=== PATIENT | male | born 1950 | race Caucasian/White ===

== ENCOUNTER 2024-05-16 08:46 | Inpatient (IN) | payer OTHER ==
[~2024-05-16] VITALS: Ht 175.3 cm; Wt 51.7 kg
[2024-05-16] VITALS (12 sets, daily range): BP systolic 98–123; PULSE 78–102; RESP 18–36; TEMP 97.8–100.5; O2SAT 93–100
[2024-05-16 09:20] LABS: BASOPHILS % (AUTO) 0.1 % (0.0-2.0); HEMATOCRIT 26.3 % (36-54); HEMOGLOBIN 8.4 g/dL (14.0-18.0); LYMPHOCYTES # (AUTO) 0.6 K/uL (1.0-5.5); LYMPHOCYTES % (AUTO) 2.3 % (20.5-51.5); MEAN CORPUSCULAR HEMOGLOBIN 29 pg (27-31); MEAN CORPUSCULAR HGB CONC 32 % (32-36); MEAN CORPUSCULAR VOLUME 92 fL (79.0-98.0); MONOCYTES # (AUTO) 0.6 K/uL (0.0-1.0); MONOCYTES % (AUTO) 2.4 % (1.7-9.3); NEUTROPHILS % (AUTO) 95.2 % (40.0-70.0); PLATELET COUNT (AUTO) 427 K/uL (130-430); RED BLOOD CELL COUNT(AUTO) 2.87 MIL/uL (4.2-6.2); RED CELL DISTRIBUTION WIDTH 15.4 % (9.0-15.0)
[2024-05-16 09:21] LABS: ABG O2 SAT% ESTIMATE 97.5 % (94.0-100.0); BLOOD GAS PCO2 28.6 mmHg (32.0-45.0); BLOOD GAS PH 7.416 (7.350-7.450); BLOOD GAS PO2 95.1 mmHg (75.0-100.0)
[2024-05-16] MEDS ORDERED: VANCOMYCIN HCL 1000 MG/VIAL IV ONE (09:27)
[2024-05-16] MEDS ORDERED: PIPERACILLIN/TAZOBACTAM 3.375 GM/VIAL (ZOSYN) IV ONE (09:27)
[2024-05-16 09:28] LABS: BLOOD GAS BASE EXCESS -5.5 mmol/L (-3.0-3.0)
[2024-05-16] MEDS: PIPERACILLIN/TAZO 3.375 GM in NS 50 ML IV ONE (09:33)
[2024-05-16] MEDS: NS 1000 ML IV.SOLN IV ONE (09:34)
[2024-05-16] MEDS: ACETAMINOPHEN 650 MG SUPP.RECT RC ONE (09:34)
[2024-05-16] MEDS: VANCOMYCIN HCL 1,000 MG in NS 250 ML IV ONE (09:35)
[2024-05-16 09:52] LABS: INR 1.1 (0.80-1.20); PROTHROMBIN TIME 11.7 SECS (9.5-12.5)
[2024-05-16 10:07] LABS: ALANINE AMINOTRANSFERASE 11 U/L (12-78); ALBUMIN 0.9 g/dL (3.4-4.8); ANION GAP 18 (5-15); ASPARTATE AMINOTRANSFERASE 23 U/L (10-37); BILIRUBIN,DIRECT 0.2 mg/dL (0.0-0.3); CALCIUM 8.8 mg/dL (8.4-11.0); CARBON DIOXIDE 18 mmol/L (23-29); CREATININE 2.35 mg/dL (0.55-1.30); GLUCOSE 254 mg/dL (74-106); TOTAL BILIRUBIN 0.5 mg/dL (0.0-1.0); UREA NITROGEN, BLOOD 44 mg/dL (8-21)
[2024-05-16 10:17] LABS: CHLORIDE 125 mmol/L (98-107); POTASSIUM 2.7 mmol/L (3.5-5.1); SODIUM SERUM 161 mmol/L (136-145)
[2024-05-16 10:20] LABS: NEUTROPHILS # (AUTO) 25.7 K/uL (1.8-7.7)
[2024-05-16 10:50] LABS: COVID19 ANTIGEN SOFIA FIA NEGATIVE (NEGATIVE)
[2024-05-16] MEDS ORDERED: MULT-1117 PO (10:53)
[2024-05-16] MEDS ORDERED: LIP80 PO (10:53)
[2024-05-16] MEDS ORDERED: SITA100T11 PO (10:53)
[2024-05-16] MEDS ORDERED: NOR10 PO (10:53)
[2024-05-16] MEDS ORDERED: SENN8.6T19 PO (10:53)
[2024-05-16] MEDS ORDERED: LOSA-415 PO (10:53)
[2024-05-16] MEDS ORDERED: FERR-69 PO (10:53)
[2024-05-16] MEDS ORDERED: INSU200I SQ (10:53)
[2024-05-16] MEDS ORDERED: TICA90TA PO (10:53)
[2024-05-16] MEDS ORDERED: TAMS-11 PO (10:53)
[2024-05-16] MEDS ORDERED: GLIP2.5T3 PO (10:53)
[2024-05-16] MEDS ORDERED: MAGN400T10 PO (10:53)
[2024-05-16] MEDS ORDERED: ASPI-1155 PO (10:53)
[2024-05-16] MEDS ORDERED: ACET325T PO (10:53)
[2024-05-16] MEDS ORDERED: DOCU-144 PO (10:53)
[2024-05-16] MEDS ORDERED: LACT1TAB26 PO (10:53)
[2024-05-16] MEDS ORDERED: MOM PO (10:53)
[2024-05-16] MEDS ORDERED: FINA-37 PO (10:53)
[2024-05-16] MEDS ORDERED: INSU100V9 SQ (10:53)
[2024-05-16 10:54] LABS: INFLUENZA TYPE A Negative (NEGATIVE); INFLUENZA TYPE B NEGATIVE (NEGATIVE)
[2024-05-16] MEDS ORDERED: HYDROcodone/ACETAMIN 10-325 MG TAB PO PRN (11:30)
[2024-05-16] MEDS ORDERED: LORazepam 2 MG/ML VIAL IVP PRN (11:30)
[2024-05-16] MEDS ORDERED: amLODIPine BESYLATE 10 MG TABLET PO SCH (11:30)
[2024-05-16] MEDS ORDERED: HYDROcodone/ACETAMIN 5-325 MG TAB (NORCO/ VICODIN) PO PRN (11:30)
[2024-05-16] MEDS ORDERED: ACETAMINOPHEN 325 MG TABLET PO PRN ×2 (11:30→12:15)
[2024-05-16] MEDS ORDERED: ONDANSETRON HCL 4 MG/2 ML VIAL IVP PRN (11:30)
[2024-05-16] MEDS ORDERED: NALOXONE HCL 0.4 MG/ML AMP (NARCAN) IVP PRN ×2 (11:30)
[2024-05-16] MEDS: POTASSIUM CHLORIDE 40 MEQ in NS 250 ML IV ONE (12:02)
[2024-05-16] MEDS: ALBUMIN HUMAN 25% 50 ML IV SCH (12:03)
[2024-05-16] MEDS: NACL 0.9% 1,000 ML IV SCH (12:03)
[2024-05-16] MEDS: TAMSULOSIN HCL 0.4 MG CAP PO ONE (12:15)
[2024-05-16] MEDS: ASPIRIN 81 MG TAB.CHEW PO ONE (12:15)
[2024-05-16] MEDS: glipiZIDE XL 2.5 MG/TAB (GLUCOTROL XL) PO ONE (12:15)
[2024-05-16] MEDS: amLODIPine BESYLATE 10 MG TABLET PO ONE (12:15)
[2024-05-16] MEDS: MULTIVITAMINS TAB 1 TABLET PO ONE (12:15)
[2024-05-16] MEDS: FINASTERIDE 5 MG TABLET (PROSCAR) PO ONE (12:15)
[2024-05-16] MEDS: SENNOSIDES 8.6 MG TABLET PO ONE (12:15)
[2024-05-16] MEDS: FERROUS SULFATE 325 MG TABLET.DR PO ONE (12:15)
[2024-05-16 14:55] LABS: ALANINE AMINOTRANSFERASE 7 U/L (12-78); ANION GAP 17 (5-15); ASPARTATE AMINOTRANSFERASE 23 U/L (10-37); CALCIUM 8.3 mg/dL (8.4-11.0); CARBON DIOXIDE 16 mmol/L (23-29); CREATININE 2.24 mg/dL (0.55-1.30); GLUCOSE 273 mg/dL (74-106); TOTAL BILIRUBIN 0.6 mg/dL (0.0-1.0); TOTAL PROTEIN, SERUM 6.3 g/dL (6.4-8.3); UREA NITROGEN, BLOOD 45 mg/dL (8-21)
[2024-05-16 15:12] LABS: SODIUM SERUM 163 mmol/L (136-145)
[2024-05-16 15:13] LABS: CHLORIDE 130 mmol/L (98-107)
[2024-05-16] MEDS: IPRATROPIUM BROM 0.5 MG/2.5 ML VIAL.NEB (ATROVENT) INH SCH (15:49)
[2024-05-16] MEDS: ALBUTEROL SULFATE 0.083% 2.5 MG/3 ML VIAL.NEB INH SCH (15:49)
[2024-05-16] MEDS: PIPERACILLIN/TAZO 3.375/DEX-IS 50 ML IV SCH (19:23)
[2024-05-16] MEDS: INSULIN REGULAR, HUMAN 100 UNITS/ML, 3 ML VIAL (humuLIN R) SUBCUT PRN (19:58)
[2024-05-16] MEDS: MILK OF MAGNESIA 30 ML UDC PO SCH (21:00)
[2024-05-16] MEDS: LACTOBACILLUS RHAMNOSUS GG 1 CAP CAPSULE PO SCH (21:00)
[2024-05-16] MEDS: ATORVASTATIN 20 MG TABLET PO SCH (21:00)
[2024-05-16] MEDS: LOSARTAN POTASSIUM 50 MG TABLET (COZAAR) PO SCH (21:00)
[2024-05-16] MEDS: MAGNESIUM OXIDE 400 MG TABLET PO SCH (21:00)
[2024-05-16] MEDS: DOCUSATE SODIUM 100 MG CAPSULE PO SCH (21:00)
[2024-05-17] VITALS (37 sets, daily range): BP systolic 104–146; PULSE 63–95; RESP 16–47; TEMP 96.9–98.8; O2SAT 90–100
[2024-05-17 04:31] LABS: BLOOD GAS PCO2 28.5 mmHg (32.0-45.0); BLOOD GAS PH 7.355 (7.350-7.450)
[2024-05-17 04:32] LABS: BLOOD GAS HCO3 15.6 mmol/L (21.0-27.0); BLOOD GAS PO2 51.6 mmHg (75.0-100.0)
[2024-05-17 04:33] LABS: ABG O2 SAT% ESTIMATE 85.8 % (94.0-100.0); BLOOD GAS BASE EXCESS -8.9 mmol/L (-3.0-3.0)
[2024-05-17] MEDS: ACETYLCYSTEINE 20% 4 ML VIAL (RT) INH SCH (05:07)
[2024-05-17] MEDS: FUROSEMIDE 20 MG/2 ML VIAL ONE (05:23)
[2024-05-17] MEDS: FUROSEMIDE 20 MG/2 ML VIAL IVP ONE (05:24)
[2024-05-17 07:16] LABS: ALANINE AMINOTRANSFERASE 10 U/L (12-78); ALBUMIN 1.5 g/dL (3.4-4.8); ANION GAP 17 (5-15); ASPARTATE AMINOTRANSFERASE 21 U/L (10-37); CALCIUM 8.6 mg/dL (8.4-11.0); CARBON DIOXIDE 18 mmol/L (23-29); CREATININE 2.42 mg/dL (0.55-1.30); GLUCOSE 236 mg/dL (74-106); PHOSPHORUS 4.5 mg/dL (2.7-4.5); TOTAL BILIRUBIN 0.6 mg/dL (0.0-1.0); TOTAL PROTEIN, SERUM 6.4 g/dL (6.4-8.3); UREA NITROGEN, BLOOD 52 mg/dL (8-21)
[2024-05-17 07:21] LABS: CHLORIDE 131 mmol/L (98-107); POTASSIUM 2.6 mmol/L (3.5-5.1); SODIUM SERUM 166 mmol/L (136-145)
[2024-05-17 07:28] LABS: BASOPHILS % (AUTO) 0.2 % (0.0-2.0); EOSINOPHILS # (AUTO) 0.1 K/uL (0.0-0.4); EOSINOPHILS % (AUTO) 0.6 % (0.0-4.0); HEMATOCRIT 23.7 % (36-54); HEMOGLOBIN 7.4 g/dL (14.0-18.0); LYMPHOCYTES # (AUTO) 0.7 K/uL (1.0-5.5); MEAN CORPUSCULAR HEMOGLOBIN 29 pg (27-31); MEAN CORPUSCULAR HGB CONC 31 % (32-36); MEAN CORPUSCULAR VOLUME 93 fL (79.0-98.0); MONOCYTES # (AUTO) 0.4 K/uL (0.0-1.0); MONOCYTES % (AUTO) 2.2 % (1.7-9.3); NEUTROPHILS # (AUTO) 16.3 K/uL (1.8-7.7); PLATELET COUNT (AUTO) 367 K/uL (130-430); RED BLOOD CELL COUNT(AUTO) 2.56 MIL/uL (4.2-6.2); RED CELL DISTRIBUTION WIDTH 15.6 % (9.0-15.0); WHITE BLOOD COUNT (AUTO) 17.5 K/uL (4.8-10.8)
[2024-05-17 07:52] LABS: BILIRUBIN,URINE NEGATIVE (NEGATIVE); BLOOD, URINE 2+ (NEGATIVE); CLARITY/URINE CLOUDY (CLEAR); COLOR,URINE YELLOW (YELLOW); GLUCOSE,URINE NEGATIVE (NEGATIVE); KETONES,URINE NEGATIVE (NEGATIVE); LEUKOCYTE ESTERASE ,URINE 1+ (NEGATIVE); NITRITE, URINE NEGATIVE (NEGATIVE); PROTEIN URINE 2+ (NEGATIVE); UROBILINOGEN,URINE 0.2 (0.2-1.0)
[2024-05-17] MEDS: glipiZIDE XL 2.5 MG/TAB (GLUCOTROL XL) PO SCH (09:00)
[2024-05-17] MEDS: TAMSULOSIN HCL 0.4 MG CAP PO SCH (09:00)
[2024-05-17] MEDS: TICAGRELOR 90 MG TABLET PO SCH (09:00)
[2024-05-17] MEDS: SENNOSIDES 8.6 MG TABLET PO SCH (09:00)
[2024-05-17] MEDS: MULTIVITAMINS TAB 1 TABLET PO SCH (09:00)
[2024-05-17] MEDS: ASPIRIN 81 MG TAB.CHEW PO SCH (09:00)
[2024-05-17] MEDS: FINASTERIDE 5 MG TABLET (PROSCAR) PO SCH (09:00)
[2024-05-17] MEDS: amLODIPine BESYLATE 10 MG TABLET PO SCH (09:00)
[2024-05-17] MEDS: FERROUS SULFATE 325 MG TABLET.DR PO SCH (09:00)
[2024-05-17 09:59] LABS: BACTERIA,URINE FEW /HPF (None Seen); RBC,URINE 20-50 /HPF (0-3); URINE AMORPHOUS URATE 2+ /HPF (None Seen); WBC,URINE 20-50 /HPF (0-3)
[2024-05-17 10:00] LABS: COARSE GRANULAR CASTS,URINE 0-3 /LPF (None Seen)
[2024-05-17] MEDS: D5W 1,000 ML IV SCH (11:47)
[2024-05-17] MEDS: POTASSIUM CHLORIDE 40 MEQ in D5W 250 ML IV ONE (11:50)
[2024-05-17] MEDS: 0.45% NACL 1,000 ML IV SCH (22:22)
[2024-05-17 23:35] LABS: ANION GAP 14 (5-15); CALCIUM 8.6 mg/dL (8.4-11.0); CARBON DIOXIDE 18 mmol/L (23-29); CREATININE 2.55 mg/dL (0.55-1.30); GLUCOSE 340 mg/dL (74-106); UREA NITROGEN, BLOOD 57 mg/dL (8-21)
[2024-05-17 23:48] LABS: CHLORIDE 131 mmol/L (98-107); POTASSIUM 2.4 mmol/L (3.5-5.1); SODIUM SERUM 163 mmol/L (136-145)
[2024-05-18] VITALS (31 sets, daily range): BP systolic 106–144; PULSE 68–99; RESP 11–29; TEMP 97.4–98.8; O2SAT 94–100
[2024-05-18] MEDS ORDERED: POTASSIUM CHLORIDE 40 MEQ in 0.45% NS 250 ML IV SCH (00:15)
[2024-05-18 05:39] LABS: BASOPHILS % (AUTO) 0.1 % (0.0-2.0); EOSINOPHILS % (AUTO) 0.1 % (0.0-4.0); HEMATOCRIT 26.7 % (36-54); HEMOGLOBIN 8.4 g/dL (14.0-18.0); LYMPHOCYTES # (AUTO) 0.4 K/uL (1.0-5.5); LYMPHOCYTES % (AUTO) 2.4 % (20.5-51.5); MEAN CORPUSCULAR HEMOGLOBIN 29 pg (27-31); MEAN CORPUSCULAR HGB CONC 32 % (32-36); MEAN CORPUSCULAR VOLUME 92 fL (79.0-98.0); MONOCYTES # (AUTO) 0.3 K/uL (0.0-1.0); MONOCYTES % (AUTO) 1.8 % (1.7-9.3); NEUTROPHILS # (AUTO) 17.6 K/uL (1.8-7.7); NEUTROPHILS % (AUTO) 95.6 % (40.0-70.0); PLATELET COUNT (AUTO) 361 K/uL (130-430); RED BLOOD CELL COUNT(AUTO) 2.91 MIL/uL (4.2-6.2); WHITE BLOOD COUNT (AUTO) 18.4 K/uL (4.8-10.8)
[2024-05-18 05:58] LABS: ALANINE AMINOTRANSFERASE 12 U/L (12-78); ALBUMIN 1.3 g/dL (3.4-4.8); ANION GAP 19 (5-15); ASPARTATE AMINOTRANSFERASE 19 U/L (10-37); CALCIUM 8.9 mg/dL (8.4-11.0); CARBON DIOXIDE 16 mmol/L (23-29); CREATININE 2.59 mg/dL (0.55-1.30); GLUCOSE 206 mg/dL (74-106); TOTAL BILIRUBIN 0.6 mg/dL (0.0-1.0); UREA NITROGEN, BLOOD 55 mg/dL (8-21)
[2024-05-18 06:03] LABS: CHLORIDE 130 mmol/L (98-107); POTASSIUM 2.3 mmol/L (3.5-5.1); SODIUM SERUM 165 mmol/L (136-145)
[2024-05-18 07:56] LABS: ERYTHROCYTE SEDIMENTATION RATE > 130 MM/HR (0-15)
[2024-05-18] MEDS: POTASSIUM CHLORIDE 40 MEQ in 0.45% NS 250 ML IV SCH (08:37)
[2024-05-18] MEDS: D5W 1,000 ML IV SCH (13:22)
[2024-05-18] MEDS ORDERED: VASOPRESSIN 40 UNITS in NS 38 ML IV PRN (14:15)
[2024-05-18] MEDS ORDERED: NACL 0.9% 1,000 ML IV ONE (14:15)
[2024-05-18] MEDS ORDERED: HYDROCORTISONE SOD SUCC 100 MG/2 ML VIAL IVP ONE (14:45)
[2024-05-18 15:31] LABS: ALANINE AMINOTRANSFERASE 10 U/L (12-78); ALBUMIN 1.2 g/dL (3.4-4.8); ANION GAP 15 (5-15); ASPARTATE AMINOTRANSFERASE 18 U/L (10-37); CALCIUM 8.7 mg/dL (8.4-11.0); CARBON DIOXIDE 17 mmol/L (23-29); CREATININE 2.37 mg/dL (0.55-1.30); GLUCOSE 275 mg/dL (74-106); TOTAL BILIRUBIN 0.6 mg/dL (0.0-1.0); TOTAL PROTEIN, SERUM 6.4 g/dL (6.4-8.3); UREA NITROGEN, BLOOD 55 mg/dL (8-21)
[2024-05-18 15:39] LABS: SODIUM SERUM 164 mmol/L (136-145)
[2024-05-18 15:40] LABS: CHLORIDE 132 mmol/L (98-107)
[2024-05-18] MEDS: INSULIN REGULAR, HUMAN 100 UNITS in NS 99 ML IV PRN (15:58)
[2024-05-18] MEDS: VANCOMYCIN HCL 500 MG in NS 100 ML IV SCH (19:08)
[2024-05-18] MEDS ORDERED: HYDROCORTISONE SOD SUCC 100 MG/2 ML VIAL IVP SCH (22:00)
[2024-05-19] VITALS (28 sets, daily range): BP systolic 121–145; PULSE 81–105; RESP 13–29; TEMP 98.5–99.1; O2SAT 94–100
[2024-05-19 06:15] LABS: BASOPHILS % (AUTO) 0.2 % (0.0-2.0); EOSINOPHILS % (AUTO) 0.1 % (0.0-4.0); HEMATOCRIT 25.3 % (36-54); HEMOGLOBIN 7.9 g/dL (14.0-18.0); LYMPHOCYTES # (AUTO) 0.6 K/uL (1.0-5.5); LYMPHOCYTES % (AUTO) 3.1 % (20.5-51.5); MEAN CORPUSCULAR HEMOGLOBIN 29 pg (27-31); MEAN CORPUSCULAR HGB CONC 31 % (32-36); MEAN CORPUSCULAR VOLUME 92 fL (79.0-98.0); MONOCYTES # (AUTO) 0.2 K/uL (0.0-1.0); MONOCYTES % (AUTO) 1.2 % (1.7-9.3); NEUTROPHILS # (AUTO) 17.9 K/uL (1.8-7.7); NEUTROPHILS % (AUTO) 95.4 % (40.0-70.0); PLATELET COUNT (AUTO) 299 K/uL (130-430); RED BLOOD CELL COUNT(AUTO) 2.76 MIL/uL (4.2-6.2); WHITE BLOOD COUNT (AUTO) 18.7 K/uL (4.8-10.8)
[2024-05-19 06:45] LABS: ANION GAP 17 (5-15); CALCIUM 8.9 mg/dL (8.4-11.0); CARBON DIOXIDE 16 mmol/L (23-29); CREATININE 2.31 mg/dL (0.55-1.30); GLUCOSE 164 mg/dL (74-106); PHOSPHORUS 1.7 mg/dL (2.7-4.5); THYROID STIMULATING HORMONE 0.96 uIu/mL (0.36-3.74); UREA NITROGEN, BLOOD 48 mg/dL (8-21)
[2024-05-19 07:01] LABS: SODIUM SERUM 165 mmol/L (136-145)
[2024-05-19 07:02] LABS: CHLORIDE 132 mmol/L (98-107); POTASSIUM 2.6 mmol/L (3.5-5.1)
[2024-05-19 07:21] LABS: ERYTHROCYTE SEDIMENTATION RATE > 130 MM/HR (0-15)
[2024-05-19] MEDS: COMMUNICATION ORDER XX ONE (09:00)
[2024-05-19] MEDS: POTASSIUM CHLORIDE 40 MEQ in D5W 250 ML IV ONE (09:15)
[2024-05-19] MEDS: K PHOS 15 MM in D5W 250 ML IV ONE (09:51)
[2024-05-19] MEDS: IPRATROPIUM/ALBUTEROL SULFATE 3 ML AMPUL.NEB (DUONEB) INH SCH (13:29)
[2024-05-19] MEDS: INSULIN GLARGINE 100 UNITS/ML, 10 ML VIAL SUBCUT SCH (18:08)
[2024-05-19 19:32] LABS: ALANINE AMINOTRANSFERASE 8 U/L (12-78); ALBUMIN 1.1 g/dL (3.4-4.8); ANION GAP 16 (5-15); ASPARTATE AMINOTRANSFERASE 19 U/L (10-37); CALCIUM 8.7 mg/dL (8.4-11.0); CARBON DIOXIDE 17 mmol/L (23-29); CREATININE 2.17 mg/dL (0.55-1.30); GLUCOSE 146 mg/dL (74-106); POTASSIUM 3.2 mmol/L (3.5-5.1); TOTAL BILIRUBIN 0.7 mg/dL (0.0-1.0); TOTAL PROTEIN, SERUM 6.4 g/dL (6.4-8.3); UREA NITROGEN, BLOOD 43 mg/dL (8-21)
[2024-05-19 19:39] LABS: CHLORIDE 129 mmol/L (98-107); SODIUM SERUM 162 mmol/L (136-145)
[2024-05-19] MEDS: NS 0.45% IV ONE (21:59)
[2024-05-19] MEDS: KCL IV ONE (21:59)
[2024-05-19] MEDS: KCL 20 mEq in 0.45% NS 1000 mL 1,000 ML IV SCH (22:01)
[2024-05-19] MEDS: HEPARIN SODIUM,PORCINE 5,000 UNITS/ML VIAL SUBCUT ONE (23:57)
[2024-05-20] VITALS (23 sets, daily range): BP systolic 127–149; PULSE 65–96; RESP 12–30; TEMP 98–98.9; O2SAT 94–100
[2024-05-20] MEDS: DEXTROSE 50% JECT 50 ML DISP.SYRIN IVP PRN (00:10)
[2024-05-20] MEDS: DEXTROSE 50% JECT 50 ML DISP.SYRIN ONE (00:57)
[2024-05-20] MEDS: KCL 20 mEq in D5W 1000 mL 1,000 ML IV SCH (00:59)
[2024-05-20 05:46] LABS: BASOPHILS % (AUTO) 0.1 % (0.0-2.0); EOSINOPHILS % (AUTO) 0.3 % (0.0-4.0); HEMATOCRIT 23.7 % (36-54); HEMOGLOBIN 7.6 g/dL (14.0-18.0); LYMPHOCYTES # (AUTO) 0.5 K/uL (1.0-5.5); LYMPHOCYTES % (AUTO) 3.3 % (20.5-51.5); MEAN CORPUSCULAR HEMOGLOBIN 29 pg (27-31); MEAN CORPUSCULAR HGB CONC 32 % (32-36); MEAN CORPUSCULAR VOLUME 90 fL (79.0-98.0); MONOCYTES # (AUTO) 0.2 K/uL (0.0-1.0); MONOCYTES % (AUTO) 1.3 % (1.7-9.3); NEUTROPHILS # (AUTO) 14.6 K/uL (1.8-7.7); PLATELET COUNT (AUTO) 251 K/uL (130-430); RED BLOOD CELL COUNT(AUTO) 2.64 MIL/uL (4.2-6.2); RED CELL DISTRIBUTION WIDTH 15.8 % (9.0-15.0); WHITE BLOOD COUNT (AUTO) 15.4 K/uL (4.8-10.8)
[2024-05-20 06:03] LABS: ERYTHROCYTE SEDIMENTATION RATE > 130 MM/HR (0-15)
[2024-05-20 06:08] LABS: ALANINE AMINOTRANSFERASE 12 U/L (12-78); ANION GAP 13 (5-15); ASPARTATE AMINOTRANSFERASE 19 U/L (10-37); CALCIUM 8.9 mg/dL (8.4-11.0); CARBON DIOXIDE 18 mmol/L (23-29); CREATININE 2.11 mg/dL (0.55-1.30); GLUCOSE 82 mg/dL (74-106); PHOSPHORUS 2.4 mg/dL (2.7-4.5); POTASSIUM 3.1 mmol/L (3.5-5.1); TOTAL BILIRUBIN 0.7 mg/dL (0.0-1.0); TOTAL PROTEIN, SERUM 6.3 g/dL (6.4-8.3); UREA NITROGEN, BLOOD 40 mg/dL (8-21)
[2024-05-20 06:44] LABS: CHLORIDE 129 mmol/L (98-107); SODIUM SERUM 160 mmol/L (136-145)
[2024-05-20] MEDS: HEPARIN SODIUM,PORCINE 5,000 UNITS/ML VIAL SUBCUT SCH (09:26)
[2024-05-20] MEDS: INSULIN LISPRO SLIDING SCALE 100 UNITS/ML, 3 ML VIAL (humaLOG) SUBCUT PRN (18:45)
[2024-05-21] VITALS (9 sets, daily range): BP systolic 108–136; PULSE 79–86; RESP 15–20; TEMP 97.7–98; O2SAT 98–100
[2024-05-21 05:46] LABS: BASOPHILS % (AUTO) 0.1 % (0.0-2.0); EOSINOPHILS # (AUTO) 0.1 K/uL (0.0-0.4); EOSINOPHILS % (AUTO) 0.6 % (0.0-4.0); HEMATOCRIT 23.5 % (36-54); HEMOGLOBIN 7.4 g/dL (14.0-18.0); LYMPHOCYTES # (AUTO) 0.6 K/uL (1.0-5.5); LYMPHOCYTES % (AUTO) 4.8 % (20.5-51.5); MEAN CORPUSCULAR HEMOGLOBIN 29 pg (27-31); MEAN CORPUSCULAR HGB CONC 32 % (32-36); MEAN CORPUSCULAR VOLUME 91 fL (79.0-98.0); MONOCYTES # (AUTO) 0.2 K/uL (0.0-1.0); MONOCYTES % (AUTO) 1.6 % (1.7-9.3); NEUTROPHILS # (AUTO) 11.6 K/uL (1.8-7.7); NEUTROPHILS % (AUTO) 92.9 % (40.0-70.0); PLATELET COUNT (AUTO) 246 K/uL (130-430); RED BLOOD CELL COUNT(AUTO) 2.59 MIL/uL (4.2-6.2); RED CELL DISTRIBUTION WIDTH 16.2 % (9.0-15.0); WHITE BLOOD COUNT (AUTO) 12.5 K/uL (4.8-10.8)
[2024-05-21 06:04] LABS: ALANINE AMINOTRANSFERASE 11 U/L (12-78); ALBUMIN 0.9 g/dL (3.4-4.8); ANION GAP 14 (5-15); ASPARTATE AMINOTRANSFERASE 25 U/L (10-37); CALCIUM 8.5 mg/dL (8.4-11.0); CARBON DIOXIDE 17 mmol/L (23-29); CREATININE 1.86 mg/dL (0.55-1.30); GLUCOSE 140 mg/dL (74-106); POTASSIUM 3.1 mmol/L (3.5-5.1); SODIUM SERUM 152 mmol/L (136-145); TOTAL BILIRUBIN 0.5 mg/dL (0.0-1.0); TOTAL PROTEIN, SERUM 6.2 g/dL (6.4-8.3); UREA NITROGEN, BLOOD 36 mg/dL (8-21)
[2024-05-21 08:10] LABS: CHLORIDE 121 mmol/L (98-107)
[2024-05-22] VITALS (9 sets, daily range): BP systolic 124–138; PULSE 87–101; RESP 16–20; TEMP 97.8–98.6; O2SAT 94–100
[2024-05-22 12:59] LABS: BASOPHILS % (AUTO) 0.1 % (0.0-2.0); EOSINOPHILS # (AUTO) 0.1 K/uL (0.0-0.4); HEMATOCRIT 23.1 % (36-54); HEMOGLOBIN 7.4 g/dL (14.0-18.0); LYMPHOCYTES # (AUTO) 0.5 K/uL (1.0-5.5); MEAN CORPUSCULAR HEMOGLOBIN 29 pg (27-31); MEAN CORPUSCULAR HGB CONC 32 % (32-36); MEAN CORPUSCULAR VOLUME 92 fL (79.0-98.0); MONOCYTES # (AUTO) 0.2 K/uL (0.0-1.0); MONOCYTES % (AUTO) 2.4 % (1.7-9.3); NEUTROPHILS # (AUTO) 9.2 K/uL (1.8-7.7); NEUTROPHILS % (AUTO) 91.5 % (40.0-70.0); PLATELET COUNT (AUTO) 240 K/uL (130-430); RED BLOOD CELL COUNT(AUTO) 2.52 MIL/uL (4.2-6.2); RED CELL DISTRIBUTION WIDTH 16.8 % (9.0-15.0)
[2024-05-22 13:10] LABS: ALANINE AMINOTRANSFERASE 15 U/L (12-78); ALBUMIN 0.8 g/dL (3.4-4.8); ANION GAP 12 (5-15); CALCIUM 8.4 mg/dL (8.4-11.0); CARBON DIOXIDE 18 mmol/L (23-29); CHLORIDE 117 mmol/L (98-107); CREATININE 1.73 mg/dL (0.55-1.30); GLUCOSE 250 mg/dL (74-106); POTASSIUM 3.6 mmol/L (3.5-5.1); SODIUM SERUM 147 mmol/L (136-145); TOTAL BILIRUBIN 0.3 mg/dL (0.0-1.0); UREA NITROGEN, BLOOD 35 mg/dL (8-21)
[2024-05-22 13:14] LABS: ASPARTATE AMINOTRANSFERASE 42 U/L (10-37)
[2024-05-23] VITALS (10 sets, daily range): BP systolic 131–148; PULSE 63–102; RESP 16–18; TEMP 97.6–98.8; O2SAT 94–100
[2024-05-23 05:54] LABS: BASOPHILS % (AUTO) 0.1 % (0.0-2.0); EOSINOPHILS # (AUTO) 0.1 K/uL (0.0-0.4); EOSINOPHILS % (AUTO) 0.8 % (0.0-4.0); LYMPHOCYTES # (AUTO) 0.6 K/uL (1.0-5.5); LYMPHOCYTES % (AUTO) 6.7 % (20.5-51.5); MEAN CORPUSCULAR HEMOGLOBIN 30 pg (27-31); MEAN CORPUSCULAR HGB CONC 33 % (32-36); MEAN CORPUSCULAR VOLUME 89 fL (79.0-98.0); MONOCYTES # (AUTO) 0.2 K/uL (0.0-1.0); MONOCYTES % (AUTO) 2.7 % (1.7-9.3); NEUTROPHILS # (AUTO) 8.3 K/uL (1.8-7.7); NEUTROPHILS % (AUTO) 89.7 % (40.0-70.0); PLATELET COUNT (AUTO) 265 K/uL (130-430); RED BLOOD CELL COUNT(AUTO) 2.27 MIL/uL (4.2-6.2); RED CELL DISTRIBUTION WIDTH 16.2 % (9.0-15.0); WHITE BLOOD COUNT (AUTO) 9.2 K/uL (4.8-10.8)
[2024-05-23 06:19] LABS: ALANINE AMINOTRANSFERASE 19 U/L (12-78); ALBUMIN 0.8 g/dL (3.4-4.8); ANION GAP 10 (5-15); ASPARTATE AMINOTRANSFERASE 51 U/L (10-37); CALCIUM 8.3 mg/dL (8.4-11.0); CARBON DIOXIDE 20 mmol/L (23-29); CHLORIDE 115 mmol/L (98-107); CREATININE 1.57 mg/dL (0.55-1.30); GLUCOSE 122 mg/dL (74-106); POTASSIUM 3.9 mmol/L (3.5-5.1); SODIUM SERUM 145 mmol/L (136-145); TOTAL BILIRUBIN 0.3 mg/dL (0.0-1.0); TOTAL PROTEIN, SERUM 5.9 g/dL (6.4-8.3); UREA NITROGEN, BLOOD 30 mg/dL (8-21)
[2024-05-23 07:41] LABS: HEMATOCRIT 20.2 % (36-54); HEMOGLOBIN 6.7 g/dL (14.0-18.0)
[2024-05-23] MEDS: BISACODYL 10 MG/SUPPOSITORY RC SCH (09:00)
[2024-05-23] MEDS: NS IV ONE (10:17)
[2024-05-23] MEDS: CEFAZOLIN SODIUM IV ONE (10:17)
[2024-05-23] MEDS: PANTOPRAZOLE SODIUM 40 MG/VIAL (PROTONIX) IVP SCH (10:18)
[2024-05-23] MEDS: METOCLOPRAMIDE HCL 10 MG/2 ML VIAL IVP SCH (18:20)
[2024-05-23 18:41] LABS: HEMATOCRIT 26.5 % (36-54); HEMOGLOBIN 9.1 g/dL (14.0-18.0)
[2024-05-23] MEDS ORDERED: GLUCOSE (DEXTROSE) ORAL GEL -Adults PO PRN (18:45)
[2024-05-23] MEDS ORDERED: D5W 1,000 ML IV PRN (18:45)
[2024-05-23] MEDS ORDERED: DEXTROSE 50% JECT 50 ML DISP.SYRIN IVP PRN (18:45)
[2024-05-24] VITALS (8 sets, daily range): BP systolic 112–144; PULSE 85–102; RESP 16–20; TEMP 96.8–98.4; O2SAT 95–100
[2024-05-24 05:39] LABS: BASOPHILS % (AUTO) 0.2 % (0.0-2.0); EOSINOPHILS % (AUTO) 0.4 % (0.0-4.0); HEMATOCRIT 25.9 % (36-54); HEMOGLOBIN 8.6 g/dL (14.0-18.0); LYMPHOCYTES # (AUTO) 0.7 K/uL (1.0-5.5); LYMPHOCYTES % (AUTO) 8.8 % (20.5-51.5); MEAN CORPUSCULAR HEMOGLOBIN 29 pg (27-31); MEAN CORPUSCULAR HGB CONC 33 % (32-36); MEAN CORPUSCULAR VOLUME 89 fL (79.0-98.0); MONOCYTES # (AUTO) 0.2 K/uL (0.0-1.0); MONOCYTES % (AUTO) 2.6 % (1.7-9.3); NEUTROPHILS # (AUTO) 7.1 K/uL (1.8-7.7); PLATELET COUNT (AUTO) 293 K/uL (130-430); RED BLOOD CELL COUNT(AUTO) 2.92 MIL/uL (4.2-6.2); RED CELL DISTRIBUTION WIDTH 15.6 % (9.0-15.0); WHITE BLOOD COUNT (AUTO) 8.1 K/uL (4.8-10.8)
[2024-05-24 05:52] LABS: CALCIUM 8.2 mg/dL (8.4-11.0); CARBON DIOXIDE 20 mmol/L (23-29); CREATININE 1.43 mg/dL (0.55-1.30); GLUCOSE 213 mg/dL (74-106); SODIUM SERUM 142 mmol/L (136-145); UREA NITROGEN, BLOOD 27 mg/dL (8-21)
[2024-05-24 06:12] LABS: PROTHROMBIN TIME 10.5 SECS (9.5-12.5)
[2024-05-24 06:28] LABS: ANION GAP 10 (5-15); CHLORIDE 112 mmol/L (98-107); POTASSIUM 4.2 mmol/L (3.5-5.1)
[2024-05-24] MEDS: fentaNYL CITRATE/PF 100 MCG/2 ML AMP ONE (07:07)
[2024-05-24] MEDS: MIDAZOLAM HCL 5 MG/5 ML VIAL ONE (07:07)
[2024-05-24] MEDS: MEPERIDINE 100 MG INJ. 100 MG/ML VIAL ONE (14:32)
[2024-05-24] MEDS: CEFAZOLIN 1 GM IVPB PREMIX 50 ML IV ONE (16:23)
[2024-05-24] MEDS ORDERED: SIMETHICONE 40 MG/0.6 ML ML ONE (17:26)
[2024-05-25] VITALS (12 sets, daily range): BP systolic 112–137; PULSE 83–100; RESP 16–24; TEMP 96.9–97.9; O2SAT 99–100
[2024-05-25 06:27] LABS: BASOPHILS % (AUTO) 0.2 % (0.0-2.0); EOSINOPHILS % (AUTO) 0.5 % (0.0-4.0); HEMATOCRIT 24.4 % (36-54); LYMPHOCYTES # (AUTO) 0.7 K/uL (1.0-5.5); LYMPHOCYTES % (AUTO) 10.2 % (20.5-51.5); MEAN CORPUSCULAR HEMOGLOBIN 29 pg (27-31); MEAN CORPUSCULAR HGB CONC 33 % (32-36); MEAN CORPUSCULAR VOLUME 89 fL (79.0-98.0); MONOCYTES # (AUTO) 0.2 K/uL (0.0-1.0); MONOCYTES % (AUTO) 3.4 % (1.7-9.3); NEUTROPHILS # (AUTO) 5.7 K/uL (1.8-7.7); NEUTROPHILS % (AUTO) 85.7 % (40.0-70.0); PLATELET COUNT (AUTO) 349 K/uL (130-430); RED BLOOD CELL COUNT(AUTO) 2.76 MIL/uL (4.2-6.2); RED CELL DISTRIBUTION WIDTH 15.4 % (9.0-15.0); WHITE BLOOD COUNT (AUTO) 6.6 K/uL (4.8-10.8)
[2024-05-25 07:11] LABS: ALANINE AMINOTRANSFERASE 22 U/L (12-78); ALBUMIN 0.8 g/dL (3.4-4.8); ANION GAP 8 (5-15); ASPARTATE AMINOTRANSFERASE 56 U/L (10-37); CALCIUM 8.2 mg/dL (8.4-11.0); CARBON DIOXIDE 22 mmol/L (23-29); CHLORIDE 111 mmol/L (98-107); CREATININE 1.44 mg/dL (0.55-1.30); GLUCOSE 156 mg/dL (74-106); POTASSIUM 4.3 mmol/L (3.5-5.1); SODIUM SERUM 141 mmol/L (136-145); TOTAL BILIRUBIN 0.2 mg/dL (0.0-1.0); UREA NITROGEN, BLOOD 25 mg/dL (8-21)
[2024-05-26 01:15] VITALS: O2SAT 99
[2024-05-26 02:09] VITALS: BP_SYST 141; PULSE 94; RESP 16; TEMP 96.5; O2SAT 100
[2024-05-26 05:12] LABS: BASOPHILS % (AUTO) 0.3 % (0.0-2.0); EOSINOPHILS % (AUTO) 0.5 % (0.0-4.0); HEMATOCRIT 23.6 % (36-54); HEMOGLOBIN 7.7 g/dL (14.0-18.0); LYMPHOCYTES # (AUTO) 0.8 K/uL (1.0-5.5); LYMPHOCYTES % (AUTO) 12.6 % (20.5-51.5); MEAN CORPUSCULAR HEMOGLOBIN 29 pg (27-31); MEAN CORPUSCULAR HGB CONC 33 % (32-36); MEAN CORPUSCULAR VOLUME 89 fL (79.0-98.0); MONOCYTES # (AUTO) 0.3 K/uL (0.0-1.0); NEUTROPHILS # (AUTO) 5.2 K/uL (1.8-7.7); NEUTROPHILS % (AUTO) 82.6 % (40.0-70.0); PLATELET COUNT (AUTO) 404 K/uL (130-430); RED BLOOD CELL COUNT(AUTO) 2.65 MIL/uL (4.2-6.2); RED CELL DISTRIBUTION WIDTH 15.7 % (9.0-15.0); WHITE BLOOD COUNT (AUTO) 6.2 K/uL (4.8-10.8)
[2024-05-26 05:54] LABS: ALANINE AMINOTRANSFERASE 18 U/L (12-78); ALBUMIN 0.8 g/dL (3.4-4.8); ANION GAP 4 (5-15); ASPARTATE AMINOTRANSFERASE 45 U/L (10-37); CALCIUM 8.4 mg/dL (8.4-11.0); CARBON DIOXIDE 23 mmol/L (23-29); CHLORIDE 109 mmol/L (98-107); CREATININE 1.36 mg/dL (0.55-1.30); GLUCOSE 117 mg/dL (74-106); POTASSIUM 4.7 mmol/L (3.5-5.1); SODIUM SERUM 136 mmol/L (136-145); TOTAL BILIRUBIN 0.2 mg/dL (0.0-1.0); TOTAL PROTEIN, SERUM 6.1 g/dL (6.4-8.3); UREA NITROGEN, BLOOD 29 mg/dL (8-21)
[2024-05-26 07:15] VITALS: O2SAT 98
[2024-05-26 08:02] VITALS: O2SAT 98
[2024-05-26] MEDS: EPOETIN ALFA 4,000 UNITS/ML VIAL SUBCUT ONE (11:46)
[2024-05-26 12:43] VITALS: BP_SYST 125; PULSE 77; RESP 18; TEMP 98.6; O2SAT 98
[2024-05-26 12:44] VITALS: BP_SYST 128; PULSE 71; RESP 17; TEMP 97.6; O2SAT 98
[2024-05-26] MEDS ORDERED: ASPI-1393 GT (19:42)
[2024-05-26] MEDS ORDERED: TAMS-11 GT (19:47)
[2024-05-26] MEDS ORDERED: SITA100T11 GT (19:47)
[2024-05-26] MEDS ORDERED: LOSA-415 GT (19:47)
[2024-05-26] MEDS ORDERED: LIP80 GT (19:47)
[2024-05-26] MEDS ORDERED: FINA-37 GT (19:47)
[2024-05-26] MEDS ORDERED: GLIP2.5T3 GT (19:47)
== END 2024-05-26 13:30 | DRG 871 ==
LOC: SED 08:46 → STU 10:34 → SIC 19:52 → STU 05-20 22:43 → SMU 05-23 15:48
PROVIDERS: ADMIT Preventive Medicine Preventive Medicine/Occupational Environmental Medicine; ATTEND Specialist
PROC: 30233N1 Transfusion of Nonautologous Red Blood Cells into Peripheral Vein, Percutaneous Approach (ICD-10-PCS; 2024-05-23)
PROC: 0DH68UZ Insertion of Feeding Device into Stomach, Via Natural or Artificial Opening Endoscopic (ICD-10-PCS; principal; 2024-05-24 13:00)
DX: A41.9 Sepsis, unspecified organism (principal); E43 Unspecified severe protein-calorie malnutrition; G93.41 Metabolic encephalopathy; J96.01 Acute respiratory failure with hypoxia; J69.0 Pneumonitis due to inhalation of food and vomit; J18.9 Pneumonia, unspecified organism; E87.0 Hyperosmolality and hypernatremia; N39.0 Urinary tract infection, site not specified; N17.9 Acute kidney failure, unspecified; I24.89 Other forms of acute ischemic heart disease; J44.0 Chronic obstructive pulmonary disease with (acute) lower respiratory infection; Z68.1 Body mass index [BMI] 19.9 or less, adult; Z66 Do not resuscitate; D64.9 Anemia, unspecified; E11.22 Type 2 diabetes mellitus with diabetic chronic kidney disease; E83.39 Other disorders of phosphorus metabolism; E83.41 Hypermagnesemia; E87.6 Hypokalemia; E87.8 Other disorders of electrolyte and fluid balance, not elsewhere classified; E88.09 Other disorders of plasma-protein metabolism, not elsewhere classified; I12.9 Hypertensive chronic kidney disease with stage 1 through stage 4 chronic kidney disease, or unspecified chronic kidney disease; Z20.822 Contact with and (suspected) exposure to COVID-19; F03.90 Unspecified dementia, unspecified severity, without behavioral disturbance, psychotic disturbance, mood disturbance, and anxiety; N18.9 Chronic kidney disease, unspecified; Z79.4 Long term (current) use of insulin; Z51.5 Encounter for palliative care; Z79.899 Other long term (current) drug therapy; Z86.73 Personal history of transient ischemic attack (TIA), and cerebral infarction without residual deficits
CPT/HCPCS: 36415; 36600; 71045; 74018; 76770; 80048; 80053; 80076; 81000; 81001; 81015; 82803; 82948; 83037; 83605; 83735; 84100; 84436; 84443; 84484; 85018; 85025; 85610; 85651; 85730; 86886; 86900; 86901; 86920; 87040; 87081; 87086; 92610-GN; 93005; 93306; 94070; 94640; 94660; 94668; 94760; 97110-GP; 97530-GP; 99285; G0378; J0690; J0885; J1644; J1815; J1940; J2175; J2250; J2543; J2765; J3010; J3370; J3480; J3490; J7050; J7060; J7608; P9021; P9046